=== PATIENT | female | born 1955 | race Caucasian/White ===

== ENCOUNTER 2018-09-12 16:55 | Emergency (ER) | payer OTHER ==
[~2018-09-12] VITALS: Ht 162.6 cm; Wt 90.3 kg
--- NOTE | 2018-09-12 17:57 | RAD ---
Chest, PA and Lateral: Technique: PA and lateral views of the chest were obtained. History: Shortness of breath. Comparison: 10/04/2005. Findings: The heart and pulmonary vasculature appear within normal limits. The lungs are clear. The pleural margins are clear. Impression: No acute chest process is seen. Electronically signed by: Jcarlos Campuzano MD (09/12/2018 5:54 PM) [facility]
--- NOTE | 2018-09-12 18:03 | PHYS DOC ---
Past Medical History Past Medical History: A-Fib, Anemia, Anxiety, Arrhythmia, Asthma, COPD, Depression, Heart Disease, Hypertension, UTI Additional Past Medical Histor: cardiac stent 2015 x1 (ALINA SCHAEFER MD) Past Surgical History: Hysterectomy Additional Past Surgical Histo: tummy tuck, breast reduction (ALINA SCHAEFER MD) Alcohol Use: Occasionally Drug Use: None (ALINA SCHAEFER MD) Adult General Chief Complaint Chief Complaint: SHORTNESS OF BREATH HPI HPI Patient is a 63 year old female who presents with complaining of shortness of breath. Patient complaining of intermittent episodes of shortness of breath for one week with chest tightness during episodes of shortness of breath without fever and chills, cough, focal neuro deficit. 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 (ALINA SCHAEFER MD) Review of Systems Review of Systems Constitutional: Denies fever or chills [] Eyes: Denies change in visual acuity, redness, or eye pain [] HENT: Denies nasal congestion or sore throat [] Respiratory: Denies cough, reports shortness of breath [] Cardiovascular: No additional information not addressed in HPI [] GI: Denies abdominal pain, nausea, vomiting, bloody stools or diarrhea [] : Denies dysuria or hematuria [] Musculoskeletal: Denies back pain or joint pain [] Integument: Denies rash or skin lesions [] Neurologic: Denies headache, focal weakness or sensory changes [] Endocrine: Denies polyuria or polydipsia [] All other systems were reviewed and found to be within normal limits, except as documented in this note. (ALINA SCHAEFER MD) Current Medications Current Medications Current Medications Medications (Trade) Dose Ordered Sig/Sadia Start Time Stop Time Status Last Admin Dose Admin Potassium Chloride (Klor-Con) 40 meq 1X ONCE 09/12/18 19:00 09/12/18 19:19 DC (BRIAN SR DO) Allergies Allergies Allergies Coded Allergies Type Severity Reaction Last Updated Verified No Known Drug Allergies 09/12/18 No (BRIAN SR DO) Physical Exam Physical Exam Constitutional: Well developed, well nourished, mild distress, non-toxic appearance. [] HENT: Normocephalic, atraumatic. Eyes: PERRLA, EOMI, conjunctiva normal, no discharge. [] Neck: Normal range of motion, no tenderness, supple, no stridor. [] Cardiovascular: Irregularly irregular rhythm, no murmur [] Lungs & Thorax: Bilateral breath sounds clear to auscultation [] Abdomen: Bowel sounds normal, soft, no tenderness, no masses, no pulsatile masses. [] Skin: Warm, dry, no erythema, no rash. [] Back: No tenderness, no CVA tenderness. [] Extremities: No tenderness, no cyanosis, no clubbing, ROM intact, 1+ lower leg edema. [] Neurologic: Alert and oriented X 3, normal motor function, normal sensory function, no focal deficits noted. [] Psychologic: Affect normal, judgement normal, mood normal. [] (ALINA SCHAEFER MD) Physical Exam Constitutional: Well developed, well nourished, non-toxic appearance. [] HENT: Normocephalic, atraumatic. Neck: No jugular vein distention Lungs & Thorax: Bilateral breath sounds clear to auscultation, no rales/rhonchi /wheezing Extremities: No tenderness, trace lower leg edema. [] Neurologic: Alert and oriented X 3, (SR,BRIAN R DO) Current Patient Data Vital Signs Vital Signs Date Time Temp Pulse Resp B/P (MAP) Pulse Ox O2 Delivery O2 Flow Rate FiO2 09/12/18 17:26 98.4 77 17 135/82 (99) 99 Room Air 98.4 (SRBRIAN CHAVEZ DO) Lab Values Laboratory Tests Test 09/12/18 18:22 White Blood Count 6.1 x10^3/uL (4.0-11.0) Red Blood Count 4.15 x10^6/uL (3.50-5.40) Hemoglobin 10.6 g/dL (12.0-15.5) L Hematocrit 33.5 % (36.0-47.0) L Mean Corpuscular Volume 81 fL (79-100) Mean Corpuscular Hemoglobin 26 pg (25-35) Mean Corpuscular Hemoglobin Concent 32 g/dL (31-37) Red Cell Distribution Width 19.0 % (11.5-14.5) H Platelet Count 392 x10^3/uL (140-400) Neutrophils (%) (Auto) 48 % (31-73) Lymphocytes (%) (Auto) 38 % (24-48) Monocytes (%) (Auto) 9 % (0-9) Eosinophils (%) (Auto) 3 % (0-3) Basophils (%) (Auto) 1 % (0-3) Neutrophils # (Auto) 3.0 x10^3uL (1.8-7.7) Lymphocytes # (Auto) 2.4 x10^3/uL (1.0-4.8) Monocytes # (Auto) 0.6 x10^3/uL (0.0-1.1) Eosinophils # (Auto) 0.2 x10^3/uL (0.0-0.7) Basophils # (Auto) 0.1 x10^3/uL (0.0-0.2) Sodium Level 142 mmol/L (136-145) Potassium Level 3.4 mmol/L (3.5-5.1) L Chloride Level 102 mmol/L (98-107) Carbon Dioxide Level 29 mmol/L (21-32) Anion Gap 11 (6-14) Blood Urea Nitrogen 11 mg/dL (7-20) Creatinine 1.3 mg/dL (0.6-1.0) H Estimated GFR (Cockcroft-Gault) 41.6 BUN/Creatinine Ratio 8 (6-20) Glucose Level 83 mg/dL (70-99) Calcium Level 9.1 mg/dL (8.5-10.1) Magnesium Level 1.9 mg/dL (1.8-2.4) Total Bilirubin 0.4 mg/dL (0.2-1.0) Aspartate Amino Transferase (AST) 24 U/L (15-37) Alanine Aminotransferase (ALT) 33 U/L (14-59) Alkaline Phosphatase 79 U/L (46-116) Creatine Kinase 231 U/L (26-192) H Troponin I Quantitative < 0.017 ng/mL (0.000-0.055) OQ-Hrr-G-Type Natriuretic Peptide 42 pg/mL (0-124) Total Protein 7.1 g/dL (6.4-8.2) Albumin 3.8 g/dL (3.4-5.0) Albumin/Globulin Ratio 1.2 (1.0-1.7) Laboratory Tests 4/4/19 18:22 Laboratory Tests 09/12/18 18:22 (BRIAN SR DO) EKG EKG [] (ALINA SCHAEFER MD) EKG @1802 NSR at 72bpm, NO ST elevation, low voltage QRS (BRIAN SR DO) Radiology/Procedures Radiology/Procedures [] (ALINA SCHAEFER MD) Course & Med Decision Making Course & Med Decision Making Pertinent Labs and Imaging studies are pending. Patient care transferred to Dr. Sr at 1800 (ALINA SCHAEFER MD) Course & Med Decision Making Sign out received from Dr. Schaefer for patient with concern for increased peripheral edema. Trace edema noted to BLE. EKG stable. CXR without acute process. No clinical signs of DVT or CHF. Labs reviewed. BNP WNL. Troponin WNL. Potassium replaced. Advised patient to decrease salt intake and to wear compression stockings. Patient stable for discharge with outpatient follow-up with PCP. Discussed findings and plan with patient and family, who acknowledge understanding and agreement. (BRIAN SR DO) Dragon Disclaimer Dragon Disclaimer This electronic medical record was generated, in whole or in part, using a voice recognition dictation system. (ALINA SCHAEFER MD) Departure Departure Impression: Primary Impression: Shortness of breath Additional Impressions: Hypokalemia Peripheral edema Disposition: 01 HOME, SELF-CARE Condition: STABLE Referrals: AME HALL DO (PCP) Patient Instructions: Hypokalemia-Brief, Peripheral Edema, Potassium Content of Foods, Shortness of Breath, Blqf-by-Sjqn Problem Qualifiers ALINA SCHAEFER MD Sep 12, 2018 18:03 BRAIN SR DO Sep 12, 2018 19:26
[2018-09-12 18:30] VITALS: BP 104/79
[2018-09-12 18:31] LABS: BASO # 0.1 x10^3/uL (0.0-0.2); BASO % 1 % (0-3); EOS # 0.2 x10^3/uL (0.0-0.7); EOS % 3 % (0-3); HEMATOCRIT 33.5 % (36.0-47.0); HEMOGLOBIN 10.6 g/dL (12.0-15.5); LYMPH # 2.4 x10^3/uL (1.0-4.8); LYMPH % 38 % (24-48); MEAN CORPUSCULAR HEMOGLOBIN 26 pg (25-35); MEAN CORPUSCULAR HGB CONC 32 g/dL (31-37); MEAN CORPUSCULAR VOLUME 81 fL (79-100); MONO # 0.6 x10^3/uL (0.0-1.1); MONO % 9 % (0-9); NEUT % 48 % (31-73); PLATELET COUNT 392 x10^3/uL (140-400); RED BLOOD COUNT 4.15 x10^6/uL (3.50-5.40); WHITE BLOOD COUNT 6.1 x10^3/uL (4.0-11.0)
[2018-09-12 18:38] LABS: CALCIUM 9.1 mg/dL (8.5-10.1); CREATININE 1.3 mg/dL (0.6-1.0); GFR 41.6; POTASSIUM 3.4 mmol/L (3.5-5.1)
[2018-09-12 18:44] LABS: ALBUMIN 3.8 g/dL (3.4-5.0); ALBUMIN/GLOBULIN RATIO 1.2 (1.0-1.7); MAGNESIUM 1.9 mg/dL (1.8-2.4); TOTAL BILIRUBIN 0.4 mg/dL (0.2-1.0); TOTAL PROTEIN 7.1 g/dL (6.4-8.2)
[2018-09-12] MEDS ORDERED: POTASSIUM CHLORIDE 20 MEQ TABLET.ER. PO ONE (19:00)
--- NOTE | 2018-09-13 08:29 | EKG ---
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
== END 2018-09-12 19:50 | disposition home or self-care (01) ==
LOC: ER 16:55
DX: R06.02 Shortness of breath (principal); R60.0 Localized edema; E87.6 Hypokalemia; R07.89 Other chest pain; J44.9 Chronic obstructive pulmonary disease, unspecified; I48.91 Unspecified atrial fibrillation; F41.9 Anxiety disorder, unspecified; F32.9 Major depressive disorder, single episode, unspecified; I11.9 Hypertensive heart disease without heart failure; Z95.5 Presence of coronary angioplasty implant and graft
CPT/HCPCS: 36415; 71046; 80053; 82550; 83735; 83880; 84484; 85025; 93005; 99284-25

== ENCOUNTER → 2019-04-23 | Outpatient (CLI) | payer OTHER ==
[2018-11-21 12:21] VITALS: BP 106/72
[~2019-04-23] MED LIST: ALPR0.254 PO; ASPI-630 PO; ATOR40TA PO; DESV50TA PO; DRON400T PO; FURO-69 PO; ISOS30TA4 PO; METO-247 PO; METO10TA81 PO; PANT20TA2 PO; TRIA1CAP3 PO
--- NOTE | 2019-04-23 17:21 | KCIC ---
MRI Cervical Spine Without Contrast History: Right arm numbness, right cervical radiculopathy Technique: Multiplanar, multi sequential noncontrast MR imaging was performed of the cervical spine. Comparison: None Findings: There is some motion degradation. Cervical cord caliber is within normal limits without focal signal abnormality. There is no significant marrow edema. Cervical vertebral body stature is maintained. There is straightening of the cervical spine. There is negligible anterior spondylolisthesis C4-5 and C7-T1. There is moderate to severe degenerative disc disease at C5-6 and to lesser degree at C6-7, mild disc desiccation at other levels. C2-C3: Spinal canal and neural foramina are adequate. C3-C4: There is a shallow posterior protrusion 1 to 2 mm AP. Central canal is adequate about 11 mm. Neural foramina are adequate. C4-C5: There is severe left facet hypertrophic change. There is mild narrowing of the left neural foramen. Right neural foramen and spinal canal are adequate. C5-C6: There is minimal disc osteophyte complex and bulge. There is bilateral facet hypertrophic change. Central canal is adequate about 11 mm. There is right uncovertebral degenerative change. Neural foramina are poorly characterized due to motion, probable moderate to severe right and possible mild left neural foramina compromise. C6-C7: There is very minimal disc osteophyte complex. Central canal is adequate about 12 mm. There is left facet degenerative change, also likely degree of left uncovertebral degenerative change. Neural foramina are poorly characterized due to motion, right neural foramen adequate, likely at least mild narrowing of the left neural foramen. C7-T1: Spinal canal and neural foramina are overall adequate. There is facet degenerative change. Impression: 1. There is degenerative disc disease greatest at C5-6 and C6-7, mild spondylosis. There is no significant cervical spinal stenosis. Neural foramina are poorly characterized due to motion, likely degree of neural foramina compromise as stated greatest on the right at C5-C6. Electronically signed by: John Carlson MD (04/23/2019 5:18 PM) [facility]
== END | disposition home or self-care (01) ==
LOC: KCIC MRI 12:21
PROVIDERS: ATTEND Internal Medicine
DX: M50.122 Cervical disc disorder at C5-C6 level with radiculopathy (principal); M50.11 Cervical disc disorder with radiculopathy, high cervical region; M43.13 Spondylolisthesis, cervicothoracic region; M48.02 Spinal stenosis, cervical region; M47.22 Other spondylosis with radiculopathy, cervical region; M47.814 Spondylosis without myelopathy or radiculopathy, thoracic region; M89.38 Hypertrophy of bone, other site; M25.78 Osteophyte, vertebrae
CPT/HCPCS: 72141

== ENCOUNTER → 2019-08-14 | Outpatient (CLI) | payer OTHER ==
[2018-11-21 12:21] VITALS: BP 106/72
--- NOTE | 2019-08-14 16:14 | KCIC ---
CT LOW DOSE LUNG SCREENING Indication: Lung cancer screening, smoker of 43 years, history of COPD Technique: Noncontrast CT imaging was performed of the chest as per low dose screening protocol, multiplanar reconstruction images submitted. One or more of the following individualized dose reduction techniques were utilized for this examination: 1. Automated exposure control 2. Adjustment of the mA and/or kV according to patient size 3. Use of iterative reconstruction technique. Comparison: January 02, 2017 Findings: 0.2 cm left lower lobe nodule image 31 series 2 is stable. There is no pleural or pericardial fluid, pneumothorax, or infiltrate. There is prominent coronary calcification. There is no new significant chest lymphadenopathy. There is diffuse hepatic steatosis. Not fully evaluated, there is cervical degenerative disc disease and spondylosis and degree of spinal stenosis. IMPRESSION: 1. There is stable small left lower lobe pulmonary nodule. Lung RADS category 2, low-dose screening CT follow-up in 12 months recommended. 2. There is coronary calcification. 3. There is hepatic steatosis. Electronically signed by: John Carlson MD (08/14/2019 4:11 PM) [id number]
== END | disposition home or self-care (01) ==
LOC: KCIC CT 13:28
PROVIDERS: ATTEND Specialist
DX: Z12.2 Encounter for screening for malignant neoplasm of respiratory organs (principal); R91.1 Solitary pulmonary nodule; I25.10 Atherosclerotic heart disease of native coronary artery without angina pectoris; K76.0 Fatty (change of) liver, not elsewhere classified; M50.30 Other cervical disc degeneration, unspecified cervical region; M47.812 Spondylosis without myelopathy or radiculopathy, cervical region; M48.02 Spinal stenosis, cervical region; Z87.891 Personal history of nicotine dependence
CPT/HCPCS: G0297

== ENCOUNTER → 2020-10-19 | Outpatient (CLI) | payer OTHER ==
[2018-11-21 12:21] VITALS: BP 106/72
[~2020-10-19] MED LIST changes: -DRON400T PO; +DRON400T6 PO; -ISOS30TA4 PO; +ISOS30TA68 PO
--- NOTE | 2020-10-19 14:55 | KCIC ---
Renal sonography Clinical indications: Increase in urine white blood cells. Erthrocyte casts present in urine. FINDINGS: The longitudinal and AP and transverse dimensions of the right kidney are 9.3 cm and 5.1 cm and 5.1 cm respectively. The longitudinal and AP and transverse dimensions of the left kidney are 10 .8 cm and 5.4 cm and 4.6 m respectively. There is a cortical calcification of the mid aspect of the l eft kidney measuring 5 mm in size. There is a larger cortical calcification of the mid aspect of the right kidney measuring 9 mm in size. No central calcifications are seen to indicate definite renal co llecting system stones. No hydronephrosis or renal mass or perinephric fluid collection is seen on ei ther side. Urinary bladder is not abnormally distended measuring 30 cc. Bilateral ureteral jets are s een. IMPRESSION: No hydronephrosis. No renal mass. Electronically signed by: Angelo Marshall MD (10/19/2020 2:53 PM) [id number]
== END ==
LOC: KCIC US 13:06
PROVIDERS: ATTEND Internal Medicine Nephrology
DX: R82.998 Other abnormal findings in urine (principal)
CPT/HCPCS: 76770